=== PATIENT | female | born 1980 | race Caucasian/White ===

== ENCOUNTER 2022-02-12 11:47 | Emergency (ER) | payer MEDICAID ==
[~2022-02-12] VITALS: Ht 165.1 cm; Wt 85.0 kg
[2022-02-12 12:13] VITALS: BP 118/61
[2022-02-12] MEDS ORDERED: BENZ100C86 MT (14:48)
[2022-02-12] MEDS ORDERED: PSEU120T56 MT (14:48)
== END 2022-02-12 13:36 | disposition home or self-care (01) ==
LOC: ER 11:47
DX: J06.9 Acute upper respiratory infection, unspecified (principal)
CPT/HCPCS: 99283